=== PATIENT | male | born 1965 | race Hispanic/Latino ===

== ENCOUNTER 2019-05-08 19:38 | Emergency (ER) | payer SELFPAY ==
[2019-05-08 21:12] LABS: BASOPHILS % (AUTO) 0.4 % (0.0-5.0); EOSINOPHILS % (AUTO) 1.3 % (0.0-8.0); HEMATOCRIT 25.8 % (42-54); LYMPHOCYTES % (AUTO) 10.8 % (21.0-51.0); MEAN CORPUSCULAR HEMOGLOBIN 20.5 pg (27.0-33.0); MEAN CORPUSCULAR HGB CONC 29.5 g/dL (32.0-36.0); MEAN CORPUSCULAR VOLUME 69.7 fL (79-99); MONOCYTES % (AUTO) 10.2 % (3.0-13.0); PLATELET COUNT (AUTO) 292 K/uL (130-400); RED CELL DISTRIBUTION WIDTH 16.8 % (11.0-15.5); WHITE BLOOD COUNT (AUTO) 12.8 K/uL (4.8-10.8)
[2019-05-08 21:24] LABS: CREATININE 5.3 mg/dL (0.5-1.5); POTASSIUM 5.3 mmol/L (3.5-5.1)
[2019-05-08 21:27] LABS: ALBUMIN 2.9 g/dL (3.5-5.0); BILIRUBIN,TOTAL 0.3 mg/dL (0.2-1.0); MAGNESIUM 1.7 mg/dL (1.80-2.40); TOTAL PROTEIN, SERUM 7.8 g/dL (6.0-8.3)
[2019-05-08] MEDS ORDERED: CLINDAMYCIN HCL 150 MG CAP ONE (23:48)
[2019-05-08 23:58] LABS: APPEARANCE,URINE Clear (CLEAR); BILIRUBIN,URINE Negative (NEGATIVE); COLOR,URINE Yellow (YELLOW); GLUCOSE, URINE (UA) TRACE mg/dL (NEGATIVE); KETONES,URINE Negative (NEGATIVE); LEUKOCYTE ESTERASE ,URINE Negative (NEGATIVE); NITRATE,URINE Negative (NEGATIVE); OCCULT BLOOD,URINE Negative (NEGATIVE); PH,URINE 5.5 (5.0-8.0); PROTEIN,URINE 300 mg/dL (NEGATIVE); UROBILINOGEN,URINE 0.2 mg/dL (0.2-1.0)
[2019-05-09 00:06] LABS: BACTERIA,URINE None Seen /HPF (None Seen); RBC,URINE None Seen /HPF (0-1); SQUAMOUS EPITHELIAL CELL,UR Few /HPF (0-2); WBC,URINE 0-1 /HPF (0-1); YEAST,URINE BUDDING Rare /HPF (None Seen)
== END 2019-05-09 00:04 | disposition home or self-care (01) ==
LOC: EDH 19:38
DX: L03.115 Cellulitis of right lower limb (principal); M25.562 Pain in left knee; E11.22 Type 2 diabetes mellitus with diabetic chronic kidney disease; I12.9 Hypertensive chronic kidney disease with stage 1 through stage 4 chronic kidney disease, or unspecified chronic kidney disease; N18.9 Chronic kidney disease, unspecified; Z88.6 Allergy status to analgesic agent; Z98.890 Other specified postprocedural states
CPT/HCPCS: 36415; 71045; 80053; 81001; 83605; 83735; 83880; 85025; 87040; 87804; 93970

== ENCOUNTER 2019-06-03 15:21 | Emergency (ER) | payer MEDICARE, OTHER ==
[2019-06-03 16:08] LABS: BASOPHILS % (AUTO) 0.4 % (0.0-5.0); EOSINOPHILS % (AUTO) 1.7 % (0.0-8.0); HEMATOCRIT 23.6 % (42-54); LYMPHOCYTES % (AUTO) 13.3 % (21.0-51.0); MEAN CORPUSCULAR HEMOGLOBIN 20.3 pg (27.0-33.0); MEAN CORPUSCULAR HGB CONC 29.7 g/dL (32.0-36.0); MEAN CORPUSCULAR VOLUME 68.6 fL (79-99); MONOCYTES % (AUTO) 8.7 % (3.0-13.0); NEUTROPHILS % (AUTO) 75.5 % (40.0-77.0); PLATELET COUNT (AUTO) 254 K/uL (130-400); RED BLOOD CELL COUNT(AUTO) 3.44 MIL/uL (4.50-6.20); RED CELL DISTRIBUTION WIDTH 16.8 % (11.0-15.5); WHITE BLOOD COUNT (AUTO) 10.6 K/uL (4.8-10.8)
[2019-06-03 16:26] LABS: CREATININE 5.8 mg/dL (0.5-1.5); POTASSIUM 4.4 mmol/L (3.5-5.1)
== END 2019-06-03 17:21 | disposition home or self-care (01) ==
LOC: EDH 15:21
DX: S91.301A Unspecified open wound, right foot, initial encounter (principal); E11.22 Type 2 diabetes mellitus with diabetic chronic kidney disease; I12.9 Hypertensive chronic kidney disease with stage 1 through stage 4 chronic kidney disease, or unspecified chronic kidney disease; N18.4 Chronic kidney disease, stage 4 (severe); Z87.891 Personal history of nicotine dependence; Z88.6 Allergy status to analgesic agent; X58.XXXA Exposure to other specified factors, initial encounter; Y93.89 Activity, other specified; Y92.89 Other specified places as the place of occurrence of the external cause; Y99.8 Other external cause status
CPT/HCPCS: 36415; 73630; 80048; 85025

== ENCOUNTER → 2019-12-04 | Outpatient (CLI) | payer MEDICARE ==
[~2019-12-04] MED LIST: AMLO10TA7 PO; FOLI1TAB85 PO; HYDR-3421 PO; HYDR-4154 PO; METO25TA6 PO; ONDA-104 PO; [UNRECOGNIZED DRUG - CODE]
== END | disposition home or self-care (01) ==
LOC: RAH 10:37
PROVIDERS: ATTEND Podiatrist
DX: E10.51 Type 1 diabetes mellitus with diabetic peripheral angiopathy without gangrene (principal); Z79.4 Long term (current) use of insulin; M67.02 Short Achilles tendon (acquired), left ankle; Z89.431 Acquired absence of right foot; B35.3 Tinea pedis; B35.1 Tinea unguium; L84 Corns and callosities
CPT/HCPCS: 93922

== ENCOUNTER 2020-02-05 06:10 | Observation (INO) | payer MEDICARE ==
[2020-01-29 10:44] LABS: BASOPHILS % (AUTO) 0.7 % (0.0-5.0); EOSINOPHILS % (AUTO) 1.8 % (0.0-8.0); HEMATOCRIT 41.4 % (42-54); LYMPHOCYTES % (AUTO) 16.8 % (21.0-51.0); MEAN CORPUSCULAR HEMOGLOBIN 20.7 pg (27.0-33.0); MEAN CORPUSCULAR HGB CONC 29.2 g/dL (32.0-36.0); MEAN CORPUSCULAR VOLUME 70.9 fL (79-99); MONOCYTES % (AUTO) 7.5 % (3.0-13.0); NEUTROPHILS % (AUTO) 72.9 % (40.0-77.0); PLATELET COUNT (AUTO) 267 K/uL (130-400); RED BLOOD CELL COUNT(AUTO) 5.84 MIL/uL (4.50-6.20); RED CELL DISTRIBUTION WIDTH 17.9 % (11.0-15.5); WHITE BLOOD COUNT (AUTO) 11.6 K/uL (4.8-10.8)
[2020-01-29 10:54] LABS: POTASSIUM 4.3 mmol/L (3.5-5.1)
[2020-01-29 10:58] LABS: INR 0.92 (0.85-1.15); PARTIAL THROMBOPLASTIN TIME 29.9 SEC (26.3-35.5)
[2020-02-04 17:03] VITALS: BP 140/81
--- NOTE | 2020-02-04 18:05 | NUR ---
REPORTED ABNORMAL LABS TO NADIA PORTILLO, ABNORMAL WBC 11.6, NO NEW ORDERS OK TO PROCEED.
[~2020-02-05] VITALS: Ht 170.2 cm; Wt 121.1 kg
[2020-02-05] VITALS (41 sets, daily range): BP systolic 108–156; BP diastolic 46–78
[2020-02-05] MEDS: CEFUROXIME SODIUM 1.5 GM VIAL IVP SCH ×3 (06:00→07:35)
[~2020-02-05 06:10] MED LIST changes: +AMLO-258 PO; -AMLO10TA7 PO; -HYDR-3421 PO; +INSREG SQ; -[UNRECOGNIZED DRUG - CODE]
[2020-02-05] MEDS ORDERED: SODIUM CHLORIDE 0.9% 1000ML 1,000 ML IV ONE (06:59)
[2020-02-05] MEDS ORDERED: DEXAMETHASONE SOD PHOSPHATE 10MG/ML 1ML VIAL ONE (07:29)
[2020-02-05] MEDS ORDERED: SUCCINYLCHOLINE CHLORIDE 20 MG/ML 10 ML VIAL ONE ×2 (07:29→07:30)
[2020-02-05] MEDS ORDERED: MIDAZOLAM HCL 1 MG/ML 2ML VIAL ONE (07:29)
[2020-02-05] MEDS ORDERED: NEOSTIGMINE 5MG/5ML SYR IV ONE ×2 (07:29→13:12)
[2020-02-05] MEDS ORDERED: GLYCOPYRROLATE 1 MG/5 ML SYRINGE ONE ×2 (07:29→13:11)
[2020-02-05] MEDS ORDERED: LIDOCAINE PF 2% 5ML ABBOJECT ONE ×2 (07:29→07:30)
[2020-02-05] MEDS ORDERED: PROPOFOL 10 MG/ML 20ML VIAL IV ONE ×4 (07:30→13:07)
[2020-02-05] MEDS ORDERED: ROCURONIUM 10MG/1ML SYR 10 MG/ML ML ONE ×3 (07:30→12:04)
[2020-02-05] MEDS ORDERED: FENTANYL CITRATE PF 50 MCG/1 ML 2ML VIAL ONE (07:30)
[2020-02-05] MEDS ORDERED: CEFAZOLIN SODIUM 1 GM VIAL ONE (07:49)
[2020-02-05] MEDS ORDERED: PHENYLEPHRINE HCL 10 MG/ML 1ML VIAL IV ONE (09:15)
[2020-02-05] MEDS ORDERED: ONDANSETRON HCL 4 MG/2 ML VIAL ONE (10:07)
--- NOTE | 2020-02-05 11:08 | NUR ---
PT RECEIVED FROM [facility] CONCEPCION HOLDING, PT AWAKE, ALERT AND RESPONDING. SITE SLIGHTLY SWOLLEN. PT WITH COUGH AND SITE ON FURTHER EXAMINATIONNOTED TO BE BLEEDING. MANUAL OCCLUSIVE PRESSURE HELD SLIGHTLY ABOVE DRESSING SITE. RAPID RESPONSE CALLED. PT TRANSFERRED BACK TO [facility]OVERY WHILE HOLDING PRESSURE.
[2020-02-05] MEDS ORDERED: KETAMINE 50MG/ML SYRINGE 50 MG/ML DISP.SYRIN IV ONE (11:24)
[2020-02-05] MEDS ORDERED: ALBUMIN (HUMAN) 5% 500 ML IV ONE (11:30)
[2020-02-05] MEDS ORDERED: HEPARIN SODIUM 1000UNIT/ML 10ML VIAL ONE (11:33)
[2020-02-05] MEDS ORDERED: VANCOMYCIN HCL 1 GM VIAL ONE (11:50)
[2020-02-05] MEDS ORDERED: GLUCAGON 1MG KIT 1 MG ML IM PRN (14:00)
[2020-02-05] MEDS ORDERED: TRAMADOL HCL 50 MG TABLET PO PRN ×2 (14:00)
[2020-02-05] MEDS ORDERED: DEXTROSE 50%-WATER 50 ML DISP.SYRIN IV PRN (14:00)
[2020-02-05] MEDS ORDERED: ACETAMINOPHEN 325 MG TAB PO PRN (14:00)
[2020-02-05] MEDS: HYDRALAZINE HCL 25 MG TABLET PO SCH ×2 (14:00→22:00)
[2020-02-05] MEDS: AMLODIPINE BESYLATE 5 MG TAB PO SCH (14:02)
[2020-02-05] MEDS: Vitamin B Complex/Vit C/Folic Acid PO SCH (14:04)
--- NOTE | 2020-02-05 14:35 | NUR ---
RECEIVED FROM PACU VIA BED. PT. LETHARGIC. OPENS EYES TO VERBAL COMMAND BUT CLOSES THEM AGAIN. DENIES ANY C/O SOB, DENIES ANY CURRENT PAIN. O2 AT 2L/NC. LEFT ARM WITH SURGICAL DRSG NOTED TO BRACHIAL AREA WITH CLEAR OPSITE IN PLACE, WITH BLOODY DRAINAGE NOTED TO COVER DRSG IN IT'S ENTIRETY. OOZING OF SANGUINEOUS DRAINAGE NOTED BELOW DRSG. LEFT UPPER ARM NOTED TO BE EDEMATOUS WITH TENDERNESS ON PALPATION AND SLIGHTLY BRUISED. MEDIAL BRACHIAL AREA MEASURED AT 47 CM, LOWER BRACHIAL AREA MEASURED AT 41CM. FISTULA NOTED WITH (+) BRUIT AND THRILL. RADIAL PULSE STRONG, PT. DENIES ANY C/O NUMBNESS OR TINGLING. LEFT ARM ELEVATED ON PILLOW. CALL LIGHT PLACED WITHIN RIGHT HAND REACH, PT. VERBALIZED ABILITY TO USE. BED LOW, SIDE RAILS UP X3. ROOM DOOR OPEN, PT. VISIBLE FROM NURSE'S STATION.
--- NOTE | 2020-02-05 15:30 | NUR ---
RESTING IN BED WITH EYES CLOSED, RESP.'S EVEN AND UNLABORED. OPENS EYES TO VERBAL BUT CONTINUES DROWSY. MARIAMA DRAIN WITH SANGUINEOUS DRAINAGE NOTED. CALL LIGHT WITHIN REACH. BED LOW, SIDE RAILS UP. ROOM DOOR OPEN.
[2020-02-05 16:09] LABS: HEMATOCRIT 30.8 % (42-54); MEAN CORPUSCULAR HEMOGLOBIN 22.5 pg (27.0-33.0); MEAN CORPUSCULAR HGB CONC 30.2 g/dL (32.0-36.0); MEAN CORPUSCULAR VOLUME 74.6 fL (79-99); PLATELET COUNT (AUTO) 160 K/uL (130-400); RED BLOOD CELL COUNT(AUTO) 4.13 MIL/uL (4.50-6.20); WHITE BLOOD COUNT (AUTO) 19.4 K/uL (4.8-10.8)
[2020-02-05 16:18] LABS: CREATININE 5.8 mg/dL (0.5-1.5); POTASSIUM 4.7 mmol/L (3.5-5.1)
[2020-02-05] MEDS: INSULIN HUMULIN R 100 UNIT/ML 3ML SQ SCH ×2 (16:30→21:00)
--- NOTE | 2020-02-05 17:08 | NUR ---
NOTIFIED Jason PORTILLO RN RE:PT. WITH 100ML SANGUINEOUS OUTPUT TO MARIAMA. WILL NOTIFY DR. CEJA RE:OUTPUT.
--- NOTE | 2020-02-05 17:15 | NUR ---
PER Jason PORTILLO RN, DR. CEJA AWARE 100ML SANGUINEOUS OUTPUT, NO NEW ORDERS RECEIVED AT THIS TIME.
[2020-02-05] MEDS: ONDANSETRON HCL 4 MG/2 ML VIAL IVP PRN (17:40)
[2020-02-05] MEDS: METOPROLOL TARTRATE 25 MG TAB PO SCH (21:06)
[2020-02-06 03:00] VITALS: BP 100/54
[2020-02-06] MEDS: ONDANSETRON HCL 4 MG/2 ML VIAL IVP PRN (03:27)
[2020-02-06 04:45] LABS: BASOPHILS % (AUTO) 0.5 % (0.0-5.0); EOSINOPHILS % (AUTO) 0.1 % (0.0-8.0); MEAN CORPUSCULAR HEMOGLOBIN 22.1 pg (27.0-33.0); MEAN CORPUSCULAR HGB CONC 29.6 g/dL (32.0-36.0); MEAN CORPUSCULAR VOLUME 74.5 fL (79-99); MONOCYTES % (AUTO) 9.2 % (3.0-13.0); NEUTROPHILS % (AUTO) 79.6 % (40.0-77.0); PLATELET COUNT (AUTO) 191 K/uL (130-400); RED BLOOD CELL COUNT(AUTO) 3.76 MIL/uL (4.50-6.20); RED CELL DISTRIBUTION WIDTH 18.1 % (11.0-15.5); WHITE BLOOD COUNT (AUTO) 14.1 K/uL (4.8-10.8)
[2020-02-06 04:58] LABS: ALBUMIN 3.2 g/dL (3.5-5.0); BILIRUBIN,TOTAL 0.5 mg/dL (0.2-1.0); POTASSIUM 4.9 mmol/L (3.5-5.1); TOTAL PROTEIN, SERUM 6.9 g/dL (6.0-8.3)
[2020-02-06] MEDS: HYDRALAZINE HCL 25 MG TABLET PO SCH ×2 (05:37→13:17)
[2020-02-06] MEDS: INSULIN HUMULIN R 100 UNIT/ML 3ML SQ SCH ×3 (05:37→16:14)
[2020-02-06] MEDS: Vitamin B Complex/Vit C/Folic Acid PO SCH (08:01)
[2020-02-06] MEDS: METOPROLOL TARTRATE 25 MG TAB PO SCH (08:01)
[2020-02-06] MEDS: AMLODIPINE BESYLATE 5 MG TAB PO SCH (08:02)
[2020-02-06 08:16] VITALS: BP 123/63
--- NOTE | 2020-02-06 11:19 | NUR ---
ROBINS LETTER PATIENT GIVEN ROBINS LETTER, VERBALIZED UNDERSTANDING. FORMS SIGNED, COPY GIVEN TO PATIENT.
[2020-02-06 12:04] LABS: ABG HCO3 21.8 mmol/L (21.0-28.0); ABG OXYGEN SATURATION 98.7 % (95.0-99.0); ABG PCO2 43 mmHg (35-48)
[2020-02-06 12:04] LABS: ABG BASE EXCESS -5.2 mmol/L (-2.0-3.0); ABG OXYGEN SATURATION 98.9 % (95.0-99.0); ABG PCO2 44 mmHg (35-48)
[2020-02-06 12:28] VITALS: BP 113/55
--- NOTE | 2020-02-06 12:29 | NUR ---
HELENA Teaching Pt was seen 02/06/20. Pt stated seeing his dietitian at the dialysis center and denies any need for further education. Pt stated he wants to loose weight, pt was advised accordingly. Pt was given educational handouts and will be given further handouts on cereals appropriate for renal dialysis diet. Addendum: 02/06/20 at [address] Amended: Links added.
--- NOTE | 2020-02-06 12:54 | NUR ---
RD note Pt admitted to hospital due to ESRD. Pt is currently on a CLD and tolerating well. Pt is experiencing mild nausea and vomiting episodes of phlegm. Pt denied unintentional wt loss or need for education at the moment. Pt's last bowel movement recorded was 02/05/20. When medically appropriate advance to a renal dialysis diet with a 75 gm CC modifier. Consider a Renal MVI. Pt stated taking iron at dialysis center and having a MVI + a Renal MVI recommended by his doctor. RD will continue to follow PO advancement and tolerance. Contact RD for any further nutritional problems. BMI: 41.8 LABS: BUN 54, CREAT 7.0, GFR 9, BG 148, TOT CA 8.3, ALB 3.2 Addendum: 02/06/20 at [address] Amended: Links added.
[2020-02-06 15:04] VITALS: BP 123/60
[2020-02-06] MEDS ORDERED: SODIUM CHLORIDE 0.9% 1000ML 1,000 ML IV PRN (15:30)
[2020-02-06] MEDS ORDERED: NITROGLYCERIN 0.4 MG SL TAB SL PRN (15:30)
[2020-02-06] MEDS ORDERED: HEPARIN SODIUM 5000UNIT/ML 1ML VIAL IJ PRN (15:30)
[2020-02-06] MEDS ORDERED: PHARMACY COMMUNICATION MISC SCH (15:30)
[2020-02-06] MEDS ORDERED: ACETAMINOPHEN 325 MG TAB PO PRN (15:30)
[2020-02-06] MEDS ORDERED: 0.9% SODIUM CHLORIDE 1000 ML IV BAG IV PRN (15:30)
--- NOTE | 2020-02-06 15:37 | NUR ---
LIYAH SHINE/[facility] MET WITH PATIENT IN ROOM REGARDING NEW ORDER FOR HOME HEALTH FOR WOUND CARE AND DRAIN MANAGEMENT. PER PATIENT, ALREADY ACTIVE WITH [facility]. COMPANY CALLED, PER EDMAR AT [facility], PATIENT IS ACTIVE. MAURICIO OBTAINED FROM PATIENT FOR [facility]. NEW ORDERS FOR WOUND CARE AND DRAIN MANAGEMENT FAXED TO [phone], RECEIVED. PER EDMAR, PATIENT WILL BE SEEN TOMORROW, 02/07/2020, IF DISCHARGED TODAY. REPORT GIVEN TO PRIMARY NURSE, ROGELIO HENRIQUEZ.
[2020-02-06 20:00] VITALS: BP 147/75
--- NOTE | 2020-02-06 20:13 | NUR ---
DISCHARGE PATIENT HAD DISCHARGE ORDERS PUT IN. DIALYSIS WAS COMPLETED AFTER 6PM AND HOME HEALTH AGENCY NURSE WAS CALLED AND REPORT WAS GIVEN TO THE NURSE VIA PHONE ON [phone] AT [id number]. PT IS STILL CONCERN ABOUT SURGICAL SITE AT THIS TIME.
--- NOTE | 2020-02-06 21:45 | NUR ---
Left upper arm incision dressing changed, MARIAMA drain milked, ss drain flowing via tub with tube in place. Patient kept for one hour post dressing changed. No new bleeding on dressing at time of discharge. All discharge instructions given. Patient expressed understanding. Patient discharged home in stable condition with family via WC to family car. POC completed.
[2020-02-18 11:49] LABS: HEPATITIS Bs ANTIGEN SCREEN P SEE SEPARATE REPORT (Negative)
== END 2020-02-06 21:45 | disposition home or self-care (01) ==
LOC: DAH 06:10 → DAHIP 06:11 → DAH 06:11 → 4BH 14:19
PROVIDERS: ADMIT Thoracic Surgery (Cardiothoracic Vascular Surgery); ATTEND Thoracic Surgery (Cardiothoracic Vascular Surgery)
DX: I12.0 Hypertensive chronic kidney disease with stage 5 chronic kidney disease or end stage renal disease (principal); Z20.828 Contact with and (suspected) exposure to other viral communicable diseases; E11.22 Type 2 diabetes mellitus with diabetic chronic kidney disease; E11.21 Type 2 diabetes mellitus with diabetic nephropathy; N18.6 End stage renal disease; T82.838A Hemorrhage due to vascular prosthetic devices, implants and grafts, initial encounter; D64.9 Anemia, unspecified; E11.51 Type 2 diabetes mellitus with diabetic peripheral angiopathy without gangrene; E66.9 Obesity, unspecified; Z99.2 Dependence on renal dialysis; Z79.899 Other long term (current) drug therapy; Z88.6 Allergy status to analgesic agent; X58.XXXA Exposure to other specified factors, initial encounter; Y93.89 Activity, other specified; Y92.89 Other specified places as the place of occurrence of the external cause; Z68.41 Body mass index [BMI] 40.0-44.9, adult
CPT/HCPCS: 36415 ×3; 36430; 36819; 36832; 71045; 80048 ×2; 80053; 82435 ×2; 82803 ×2; 82947 ×2; 82948 ×8; 83605 ×2; 84132 ×3; 84295 ×2; 85018 ×2; 85025 ×2; 85027; 85610; 85730; 86704; 86706; 86850; 86900; 86901; 86923; 87340 ×2; 87426; 87520; 93005; 96361; 96374; 96376; A4215; A4221; A4222; A4223; A4649 ×2; A4663; A6204; A6207; A6260; A6446 ×2; C1713 ×2; C1768 ×2; G0168; G0378 ×20; J0330 ×2; J0690; J0697; J1100; J1644 ×4; J2001 ×2; J2250; J2370; J2405 ×3; J2704 ×4; J2710 ×2; J3010; J3370; J3490 ×3; J7030 ×2; J7040; P9016 ×2; P9045; 90935